=== PATIENT | male | born 1960 ===

== ENCOUNTER 2020-01-14 07:08 | Day surgery (SDC) | payer OTHER ==
[~2020-01-14 07:08] MED LIST: CVS DAILY MULT1 EAC2 PO; FLOVENT 220MCG7.9 GM; PROTONIX20 MG PO; PROVENTIL S1 ML/5 MG; SINGULAIR10 MG
[2020-01-14] MEDS ORDERED: PERCOCET 5-3251 EACH PO (08:23)
[2020-01-14] MEDS ORDERED: COLACE100 MG PO (08:23)
== END 2020-01-14 12:55 | disposition home or self-care (01) ==
LOC: CIR.AMB 07:08 → ADM 10:30 → CIR.AMB 11:15 → ADM 11:15 → CIR.AMB 12:55
DX: K60.3 Anal fistula (principal)